=== PATIENT | male | born 1960 | race Caucasian/White ===

== ENCOUNTER 2017-01-03 01:47 | Inpatient (IN) | payer OTHER ==
[2017-01-03] VITALS (17 sets, daily range): BP systolic 105–157; BP diastolic 63–99; PULSE 66–92; RESP 16–22; TEMP 98.1–98.6; O2SAT 78–96
[~2017-01-03] VITALS: Ht 170.2 cm; Wt 63.1 kg
[~2017-01-03 01:47] MED LIST: Z.0.NO CURRENT MEDS
[2017-01-03] MEDS ORDERED: IOHEXOL 350 MG/ML 10 ML VIAL (for RAD DIAG) IVCONTRAST ONE (01:48)
[2017-01-03] MEDS ORDERED: SODIUM CHLORIDE 0.9% FLUSH 10 ML FLUSH IVF PRN (02:00)
[2017-01-03] MEDS ORDERED: RESP: ALBUTEROL 2.5 MG/IPRATROPIUM 0.5 MG NEB (SCH) INH ONE (02:00)
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
--- NOTE | 2017-01-03 03:20 | RADRPT ---
EXAM DATE/TIME: 01/03/2017 03:05 [facility] COMPARISON: No previous studies available for comparison. INDICATIONS : Shortness of breath MEDICAL HISTORY : None. SURGICAL HISTORY : None. ENCOUNTER: Initial ACUITY: 1 day PAIN SCORE: Non-responsive. LOCATION: Bilateral chest FINDINGS: The cardiac silhouette is enlarged in transverse diameter. There is patchy alveolar disease on the le ft compatible with edema or pneumonia. The right lung is free of acute parenchymal opacity. No pleura l effusions are identified. CONCLUSION: 1. Patchy alveolar left basilar disease characteristic of pneumonia. Rayshawn Belle MD on January 03, 2017 at 3:18 Board Certified Radiologist. This report was verified electronically.
[2017-01-03 03:36] LABS: ALKALINE PHOSPHATASE 69 U/L (45-117); CREATINE KINASE 356 U/L (39-308); TOTAL BILIRUBIN ADULT 0.6 MG/DL (0.2-1.0)
[2017-01-03 03:39] LABS: ALCOHOL 229 MG/DL (0-5); ALT (GPT) 26 U/L (12-78); ANION GAP 9 MEQ/L (5-15); AST (GOT) 36 U/L (15-37); BLOOD UREA NITROGEN 11 MG/DL (7-18); CHLORIDE 106 MEQ/L (98-107); GLOMERULAR FILTRATION RATE 69 ML/MIN (>89); MAGNESIUM 2.1 MG/DL (1.5-2.5); POTASSIUM 3.4 MEQ/L (3.5-5.1); SODIUM (NA) 138 MEQ/L (136-145)
[2017-01-03] MEDS ORDERED: cefTRIAXone INJ 2,000 MG in SODIUM CHLORIDE 0.9% INJ 100 ML IV ONE (03:45)
[2017-01-03] MEDS ORDERED: AZITHROMYCIN INJ 500 MG in SODIUM CHLOR 0.9% 250 ML INJ 250 ML IV ONE (03:45)
[2017-01-03 03:48] LABS: CKMB 1.7 NG/ML (0.5-3.6)
[2017-01-03 03:49] LABS: BASOPHIL % 0.3 % (0.0-2.0); EOSINOPHIL % 0.4 % (0.0-4.0); HEMATOCRIT 44.4 % (39.0-51.0); HEMO FLAGS DIFF FINAL; LYMPH % 10.9 % (9.0-44.0); MEAN CELL VOLUME 103.4 FL (80.0-100.0); MEAN CORPUSCULAR HEMOGLOBIN 35.3 PG (27.0-34.0); MEAN CORPUSCULAR HGB CONC 34.2 % (32.0-36.0); MONO % 9.8 % (0.0-8.0); NEUT % 78.6 % (16.0-70.0); PLATELET COUNT 234 TH/MM3 (150-450); RED BLOOD COUNT 4.29 MIL/MM3 (4.50-5.90); RED CELL DISTRIBUTION WIDTH 13.3 % (11.6-17.2); WHITE BLOOD COUNT 8.9 TH/MM3 (4.0-11.0)
[2017-01-03] MEDS ORDERED: RESP: ALBUTEROL 2.5 MG/IPRATROPIUM 0.5 MG NEB (SCH) NEB ONE ×2 (04:00→05:15)
[2017-01-03 04:40] LABS: BLOOD GAS BASE EXCESS -2.7 mmol/L (-2-2); BLOOD GAS CARBOXYHEMOGLOBIN 8.6 % (0-4); BLOOD GAS HCO3 23 mmol/L (22-26); BLOOD GAS METHEMOGLOBIN 0.8 % (0-2); BLOOD GAS O2 HGB SATURATION 71 % (90-100); BLOOD GAS OXYGEN CONTENT 14.9 Vol % (12.0-20.0); BLOOD GAS PCO2 53 mmHg (38-42); BLOOD GAS PO2 47 mmHG (61-120); TEMP CORR TO 98.6
[2017-01-03 04:41] LABS: CRITICAL VALUE YES; DRAW SITE RT RADIAL; FIO2 21 %; NUMBER OF ARTERIAL PUNCTURES 1; OXYGEN DEVICE N; STAT YES; ULNAR PULSE PRESENT
--- NOTE | 2017-01-03 05:42 | RADRPT ---
EXAM DATE/TIME: 01/03/2017 05:24 [facility] COMPARISON: No previous studies available for comparison. INDICATIONS : Shortness of breath. Elevated d-dimer. IV CONTRAST: 70 cc Omnipaque 350 (iohexol) IV RADIATION DOSE: 23.15 CTDIvol (mGy) MEDICAL HISTORY : None SURGICAL HISTORY : Clavicle surgery. ENCOUNTER: Initial ACUITY: 1 day PAIN SCALE: 0/10 LOCATION: chest TECHNIQUE: Volumetric scanning of the chest was performed using a pulmonary embolism protocol MIP images were re constructed. Using automated exposure control and adjustment of the mA and/or kV according to patien t size, radiation dose was kept as low as reasonably achievable to obtain optimal diagnostic quality images. DICOM format image data is available electronically for review and comparison. Follow-up recommendations for detected pulmonary nodules are based at a minimum on nodule size and pa tient risk factors according to Fleischner Society Guidelines. FINDINGS: Examination of the pulmonary vasculature demonstrates good filling of the main, lobar and segmental b ranches. There are no filling defects to suggest pulmonary embolism. Multiplanar reconstructions are also unremarkable. Examination of the mediastinum demonstrates no abnormally enlarged lymph nodes by CT criteria. No axi llary or hilar abnormalities are identified. Coronary artery calcifications are present. The visualiz ed upper abdomen demonstrates no abnormality. There is bibasilar edema versus pneumonia. No pleural e ffusions are identified. CONCLUSION: 1. No evidence of pulmonary embolism. 2. Bibasilar edema versus pneumonia Rayshawn Belle MD on January 03, 2017 at 5:38 Board Certified Radiologist. This report was verified electronically.
[2017-01-03] MEDS ORDERED: ONDANSETRON HCL 4 MG/2 ML VIAL IV PUSH ONE (06:00)
[2017-01-03 06:04] LABS: BLOOD GAS BASE EXCESS -3.8 mmol/L (-2-2); BLOOD GAS HCO3 23 mmol/L (22-26); BLOOD GAS METHEMOGLOBIN 0.8 % (0-2); BLOOD GAS O2 HGB SATURATION 86 % (90-100); BLOOD GAS OXYGEN CONTENT 17.4 Vol % (12.0-20.0); BLOOD GAS PCO2 55 mmHg (38-42); BLOOD GAS PO2 78 mmHG (61-120); BLOOD GAS TOTAL HGB 14.3 G/DL (12.0-16.0); TEMP CORR TO 98.6
[2017-01-03 06:05] LABS: CRITICAL VALUE YES; DRAW SITE RT RADIAL; LITER FLOW 5 L/M; NUMBER OF ARTERIAL PUNCTURES 2; OXYGEN DEVICE NASAL CANNULA; STAT YES; ULNAR PULSE PRESENT
[2017-01-03] MEDS ORDERED: SODIUM CHLOR 0.9% 1000 ML INJ 1,000 ML IV SCH (08:01)
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
[2017-01-03] MEDS ORDERED: SODIUM CHLORIDE 0.9% FLUSH 10 ML FLUSH IV FLUSH PRN (08:15)
[2017-01-03] MEDS ORDERED: MISCELLANEOUS NURSING INFORMATION XX SCH (08:15)
[2017-01-03] MEDS ORDERED: FLUMAZENIL 0.5 MG/5 ML VIAL IV PUSH PRN (08:15)
[2017-01-03] MEDS ORDERED: LORazepam 1 MG TAB PO PRN (08:15)
[2017-01-03] MEDS ORDERED: LORazepam 2 MG TAB PO PRN (08:15)
[2017-01-03] MEDS ORDERED: RESP: ALBUTEROL 2.5 MG/IPRATROPIUM 0.5 MG NEB (PRN) INH (08:15)
[2017-01-03] MEDS ORDERED: LORazepam 2 MG/ML VIAL IV PUSH PRN ×4 (08:15)
[2017-01-03] MEDS ORDERED: CHLORHEXIDINE GLUCONATE 2 % 1 PACK (2 CLOTHS) TOP PRN (08:15)
[2017-01-03] MEDS ORDERED: SODIUM CHLOR 0.9% 1000 ML INJ 1,000 ML IV ONE (08:45)
[2017-01-03] MEDS: SODIUM CHLORIDE 0.9% FLUSH 10 ML FLUSH IV FLUSH SCH ×2 (09:54→21:58)
[2017-01-03] MEDS: methylPREDNISolone SOD SUCC 125 MG/2 ML VIAL IV PUSH SCH ×2 (09:55→21:57)
[2017-01-03] MEDS: ENOXAPARIN SODIUM 40 MG/0.4 ML SYRINGE SQ SCH (09:55)
[2017-01-03] MEDS: FAMOTIDINE 20 MG TAB PO SCH ×2 (09:55→21:57)
[2017-01-03] MEDS: RESP: ALBUTEROL 2.5 MG/IPRATROPIUM 0.5 MG NEB (SCH) NEB ×3 (10:00→22:00)
[2017-01-03] MEDS: CEFEPIME INJ 2,000 MG in SODIUM CHLORIDE 0.9% INJ 100 ML IV SCH ×2 (10:28→21:58)
[2017-01-03] MEDS: MULTIVITAMIN INJ 10 ML, THIAMINE INJ 100 MG, FOLIC ACID INJ 1 MG in SODIUM CHLORID 0.9%... IV SCH (10:29)
[2017-01-03] MEDS: ACETAMINOPHEN/HYDROcodone 325 MG/5 MG TAB PO PRN (18:42)
[2017-01-03] MEDS: CHLORHEXIDINE 0.12% (ORAL KIT) 15 ML CUP MT SCH (20:00)
--- NOTE | 2017-01-03 21:40 | EKG ---
Date Performed: 01/03/2017 Time Performed: 03:40:47 PTAGE: 56 years EKG: Sinus rhythm ANTEROSEPTAL MYOCARDIAL INFARCTION ABNORMAL ECG NO PREVIOUS TRACING DOCTOR: Federico Langston Interpretating Date/Time 01/03/2017 21:38:14
[2017-01-04] MEDS ORDERED: CHLORHEXIDINE GLUCONATE 2 % 1 PACK (2 CLOTHS) TOP SCH (04:00)
[2017-01-04 04:04] VITALS: BP 136/86; PULSE 64; RESP 18; TEMP 98; O2SAT 93
[2017-01-04] MEDS: RESP: ALBUTEROL 2.5 MG/IPRATROPIUM 0.5 MG NEB (SCH) NEB ×2 (04:57→16:00)
[2017-01-04] MEDS: ACETAMINOPHEN/HYDROcodone 325 MG/5 MG TAB PO PRN ×3 (05:06→13:19)
[2017-01-04] MEDS ORDERED: AZITHROMYCIN INJ 500 MG in SODIUM CHLOR 0.9% 250 ML INJ 250 ML IV SCH (06:00)
--- NOTE | 2017-01-04 06:28 | RADRPT ---
EXAM DATE/TIME: 01/04/2017 06:24 [facility] COMPARISON: CHEST SINGLE AP, January 03, 2017, 3:05. INDICATIONS : Respiratory failure. MEDICAL HISTORY : None. SURGICAL HISTORY : None. ENCOUNTER: Subsequent ACUITY: 2 days PAIN SCORE: Non-responsive. LOCATION: Bilateral chest FINDINGS: A single view of the chest demonstrates minimal bibasilar densities. Heart normal in size. The cardi omediastinal contours are unremarkable. Osseous structures are intact. CONCLUSION: 1. Minimal bibasilar densities likely atelectasis. Pradeep Javier MD on January 04, 2017 at 6:26 Board Certified Radiologist. This report was verified electronically.
[2017-01-04 08:00] VITALS: BP 136/86; PULSE 66; RESP 20; TEMP 97.9; O2SAT 95
[2017-01-04] MEDS: CHLORHEXIDINE 0.12% (ORAL KIT) 15 ML CUP MT SCH (08:00)
[2017-01-04] MEDS: SODIUM CHLORIDE 0.9% FLUSH 10 ML FLUSH IV FLUSH SCH (08:38)
[2017-01-04] MEDS: CEFEPIME INJ 2,000 MG in SODIUM CHLORIDE 0.9% INJ 100 ML IV SCH (08:46)
[2017-01-04] MEDS: ENOXAPARIN SODIUM 40 MG/0.4 ML SYRINGE SQ SCH (08:47)
[2017-01-04] MEDS: FAMOTIDINE 20 MG TAB PO SCH (08:47)
[2017-01-04] MEDS: methylPREDNISolone SOD SUCC 125 MG/2 ML VIAL IV PUSH SCH (08:47)
[2017-01-04] MEDS: MULTIVITAMIN INJ 10 ML, THIAMINE INJ 100 MG, FOLIC ACID INJ 1 MG in SODIUM CHLORID 0.9%... IV SCH (09:16)
[2017-01-04 09:49] LABS: AUTOMATED NEUTROPHIL # 18.2 TH/MM3 (1.8-7.7); BASOPHIL # 0.1 TH/MM3 (0-0.2); BASOPHIL % 0.3 % (0.0-2.0); HEMATOCRIT 40.6 % (39.0-51.0); HEMO FLAGS DIFF FINAL; LYMPH % 3.4 % (9.0-44.0); LYMPHOCYTE # 0.7 TH/MM3 (1.0-4.8); MEAN CELL VOLUME 102.2 FL (80.0-100.0); MEAN CORPUSCULAR HEMOGLOBIN 35.5 PG (27.0-34.0); MEAN CORPUSCULAR HGB CONC 34.7 % (32.0-36.0); MONO % 7.2 % (0.0-8.0); NEUT % 89.1 % (16.0-70.0); PLATELET COUNT 225 TH/MM3 (150-450); RED BLOOD COUNT 3.97 MIL/MM3 (4.50-5.90); RED CELL DISTRIBUTION WIDTH 13.1 % (11.6-17.2); WHITE BLOOD COUNT 20.4 TH/MM3 (4.0-11.0)
[2017-01-04 10:24] LABS: ALKALINE PHOSPHATASE 60 U/L (45-117); ALT (GPT) 19 U/L (12-78); ANION GAP 8 MEQ/L (5-15); AST (GOT) 17 U/L (15-37); BICARBONATE 24.6 MEQ/L (21.0-32.0); BLOOD UREA NITROGEN 10 MG/DL (7-18); CHLORIDE 103 MEQ/L (98-107); GLOMERULAR FILTRATION RATE 117 ML/MIN (>89); POTASSIUM 3.9 MEQ/L (3.5-5.1); SODIUM (NA) 136 MEQ/L (136-145); TOTAL BILIRUBIN ADULT 0.7 MG/DL (0.2-1.0)
[2017-01-04 12:00] VITALS: BP 141/82; PULSE 62; RESP 20; TEMP 98.1; O2SAT 94
[2017-01-04] MEDS ORDERED: AZIT500T2 PO (15:56)
[2017-01-04] MEDS ORDERED: CEFU1TAB20 PO (16:00)
--- NOTE | 2017-01-04 16:29 | HHI.PR ---
Subjective Remarks Patient reports is feeling great. He requested to be discharged home. He denies shortness of breath. He is on room air. Appears comfortable. He has no plan to stop drinking or stop using tobacco. Objective Vitals Vital Signs Date Time Temp Pulse Resp B/P (MAP) Pulse Ox O2 Delivery O2 Flow Rate FiO2 01/04/17 12:00 98.1 62 20 141/82 (101) 94 01/04/17 10:26 Room Air 21 01/04/17 08:00 97.9 66 20 136/86 (103) 95 01/04/17 04:04 98.0 64 18 136/86 (103) 93 01/04/17 04:00 Room Air 01/04/17 00:00 Room Air 01/03/17 23:42 98.1 77 18 131/83 (99) 92 01/03/17 22:17 95 21 01/03/17 22:00 Room Air 01/03/17 20:37 98.1 76 18 140/85 (103) 95 01/03/17 18:02 98.3 76 20 157/95 (115) 96 01/03/17 18:00 96 Room Air I/O 01/03/17 01/03/17 01/03/17 01/04/17 01/04/17 01/04/17 07:00 15:00 23:00 07:00 15:00 23:00 Intake Total 100 ml 100 ml 970 ml Balance 100 ml 100 ml 970 ml Intake Oral 720 ml IV Total 100 ml 100 ml 250 ml # Voids 4 # Bowel Movements 0 Result Diagram: 01/04/17 0826 01/04/17 0826 Imaging Last Impressions Chest X-Ray 01/04/17 0600 Signed Impressions: Service Date/Time: Wednesday, January 04, 2017 06:24 - CONCLUSION: 1. Minimal bibasilar densities likely atelectasis. Pradeep Javier MD CT Angiography 01/03/17 0000 Signed Impressions: Service Date/Time: December 05:24 - CONCLUSION: 1. No evidence of pulmonary embolism. 2. Bibasilar edema versus pneumonia Rayshawn Belle MD Objective Remarks GENERAL: This is a well-nourished, well-developed patient, in no apparent distress. CARDIOVASCULAR: Normal rate and regular rhythm without murmurs, gallops, or rubs. RESPIRATORY: Air movement is fair. Diminished breath sounds bilaterally. No wheezing or rhonchi. GASTROINTESTINAL: Abdomen soft, non-tender, non-distended. Normal active bowel sounds MUSCULOSKELETAL: Extremities without cyanosis, or edema. NEURO: Alert & Oriented x4 to person, place, time, situation. Moves all ext x4 PSYCH: Appropriate mood and affect. A/P Problem List: (1) Acute on chronic respiratory failure with hypoxemia ICD Code: J96.21 - Acute and chronic respiratory failure with hypoxia Status: Acute (2) COPD with acute exacerbation ICD Code: J44.1 - Chronic obstructive pulmonary disease with (acute) exacerbation (3) LLL pneumonia ICD Code: J18.1 - Lobar pneumonia, unspecified organism (4) Lactic acidosis ICD Code: E87.2 - Acidosis (5) Sepsis ICD Code: A41.9 - Sepsis, unspecified organism (6) Alcohol intoxication ICD Code: F10.929 - Alcohol use, unspecified with intoxication, unspecified (7) Alcohol dependence ICD Code: F10.20 - Alcohol dependence, uncomplicated Assessment and Plan 56-year-old male alcoholic found slumped over by EMS. Patient admits that he has been drinking too much alcohol. He arrived in respiratory distress. He was found to have pneumonia. The patient quickly improved and weaned down to room air. He requested to go home. He has no plan to stop drinking alcohol. He is an every day smoker with no plans to stop. He was extensively counseled on the detrimental effect of alcohol and tobacco on his health. He is medically stable to be discharged home on oral antibiotics to complete the course of treatment for pneumonia. Patient counseled extensively on the need to take better care of himself. Problem Qualifiers (1) LLL pneumonia: Qualified Codes: J18.1 - Lobar pneumonia, unspecified organism (2) Sepsis: Qualified Codes: A41.9 - Sepsis, unspecified organism (3) Alcohol dependence: Qualified Codes: F10.29 - Alcohol dependence with unspecified alcohol-induced disorder Selene Schaffer MD Jan 04, 2017 16:29
== END 2017-01-04 16:27 | disposition home or self-care (01) | DRG 871 ==
LOC: NEPC 01:47 → NEDA 06:00 → HIMN 06:55 → N04B 17:48
PROVIDERS: ADMIT Internal Medicine; ATTEND Internal Medicine
PROC: 5A09357 Assistance with Respiratory Ventilation, Less than 24 Consecutive Hours, Continuous Positive Airway Pressure (ICD-10-PCS; principal; 2017-01-03)
DX: A41.9 Sepsis, unspecified organism (principal); J96.21 Acute and chronic respiratory failure with hypoxia; J18.9 Pneumonia, unspecified organism; J44.1 Chronic obstructive pulmonary disease with (acute) exacerbation; J44.0 Chronic obstructive pulmonary disease with (acute) lower respiratory infection; E87.2 Acidosis; F17.210 Nicotine dependence, cigarettes, uncomplicated; F10.229 Alcohol dependence with intoxication, unspecified; Y90.7 Blood alcohol level of 200-239 mg/100 ml
CPT/HCPCS: 36600; 71010; 71275; 80053; 80307; 82550; 82552; 82805; 83605; 83735; 83880; 84484; 85025; 85379; 87040; 87641; 93005; 94640; 94664; 96365; J0456; J0692; J0696; J1650; J2405; J2930; J3411; J7030; J7040; J7050; Q9967

== ENCOUNTER 2017-08-12 17:39 | Inpatient (IN) | payer OTHER ==
[~2017-08-12] VITALS: Ht 167.6 cm; Wt 63.7 kg
[~2017-08-12 17:39] MED LIST changes: +AMLO5 PO; +AZIT500T2 PO; +CEFU1TAB20 PO; +LISI10TA3 PO; +OXYC1TAB63 PO; +TRAM50TA PO; +WALKER WHEELS/F1 MIS
[2017-08-12 17:43] VITALS: BP 136/72; PULSE 94; RESP 16; TEMP 98.4; O2SAT 99
[2017-08-12] MEDS ORDERED: LIDOCAINE HCL 1% 50 ML VIAL INFIL ONE (18:00)
[2017-08-12] MEDS ORDERED: ACETAMINOPHEN/HYDROcodone 325 MG/5 MG TAB PO ONE (18:00)
[2017-08-12 18:03] VITALS: BP 152/86; PULSE 93; RESP 18; O2SAT 96
[2017-08-12] MEDS ORDERED: LIDOCAINE HCL 1% PF 30 ML VIAL ONE ×2 (18:05→18:26)
[2017-08-12 18:26] LABS: AUTOMATED NEUTROPHIL # 8.5 TH/MM3 (1.8-7.7); BASOPHIL # 0.1 TH/MM3 (0-0.2); BASOPHIL % 0.6 % (0.0-2.0); EOSINOPHIL # 0.1 TH/MM3 (0-0.4); EOSINOPHIL % 0.5 % (0.0-4.0); HEMATOCRIT 40.6 % (39.0-51.0); HEMOGLOBIN 13.6 GM/DL (13.0-17.0); LYMPHOCYTE # 1.5 TH/MM3 (1.0-4.8); MEAN CELL VOLUME 104.3 FL (80.0-100.0); MEAN CORPUSCULAR HEMOGLOBIN 34.9 PG (27.0-34.0); MEAN CORPUSCULAR HGB CONC 33.4 % (32.0-36.0); MEAN PLATELET VOLUME 7.1 FL (7.0-11.0); MONO % 13.9 % (0.0-8.0); MONOCYTE # 1.6 TH/MM3 (0-0.9); PLATELET COUNT 158 TH/MM3 (150-450); RED BLOOD COUNT 3.89 MIL/MM3 (4.50-5.90); WHITE BLOOD COUNT 11.8 TH/MM3 (4.0-11.0)
[2017-08-12 18:36] LABS: PROTHROMBIN TIME - PATIENT 9.9 SEC (9.8-11.6)
[2017-08-12 18:47] LABS: ALBUMIN 3.4 GM/DL (3.4-5.0); AST (GOT) 35 U/L (15-37); BICARBONATE 24.4 MEQ/L (21.0-32.0); BLOOD UREA NITROGEN 11 MG/DL (7-18); CALCIUM 8.3 MG/DL (8.5-10.1); CHLORIDE 109 MEQ/L (98-107); CREATININE 0.55 MG/DL (0.60-1.30); GLOMERULAR FILTRATION RATE 154 ML/MIN (>89); GLUCOSE,RANDOM 119 MG/DL (74-106); SODIUM (NA) 143 MEQ/L (136-145)
[2017-08-12 18:48] LABS: ALT (GPT) 27 U/L (12-78)
[2017-08-12 18:50] LABS: ALKALINE PHOSPHATASE 74 U/L (45-117); TOTAL BILIRUBIN ADULT 0.8 MG/DL (0.2-1.0); TOTAL PROTEIN 7.3 GM/DL (6.4-8.2)
--- NOTE | 2017-08-12 18:58 | RADRPT ---
EXAM DATE: 08/12/2017 6:50 PM EDT AGE/SEX: 57 years / Male INDICATIONS: Right knee swelling; no known injury. CLINICAL DATA: This is the patient's initial encounter. Patient reports that signs and symptoms have been present for 2 days and indicates a pain score of 8/10. MEDICAL/SURGICAL HISTORY: None. None. COMPARISON: No prior [facility] exams available for comparison. FINDINGS: There is prepatellar soft tissue swelling with a locule of air presumably in the prepatellar bursa or subcutaneous tissues. No acute bony abnormalities. CONCLUSION: Prepatellar bursitis or cellulitis with several small locules of air present in the soft tissues ante rior to the upper patella. Electronically signed by: Dayne Currie MD 08/12/2017 6:56 PM EDT
[2017-08-12 18:59] VITALS: BP 121/79; PULSE 80; RESP 20; O2SAT 95
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
[2017-08-12 20:44] LABS: WBC, SYNOVIAL FLUID 5400 /MM3 (0-200)
[2017-08-12] MEDS ORDERED: POTASSIUM CHLORIDE 20 MEQ CONTROLLED RELEASE TAB PO ONE (20:45)
[2017-08-12] MEDS ORDERED: CLINDAMYCIN 900 MG/NS PREMIX 50 ML IV ONE (21:15)
[2017-08-12] MEDS ORDERED: ACETAMINOPHEN 325 MG TAB PO PRN (21:15)
[2017-08-12] MEDS ORDERED: SENNOSIDES 8.6 MG TAB PO PRN (21:15)
[2017-08-12] MEDS ORDERED: NALOXONE HCL 0.4 MG/ML AMP IV PUSH PRN (21:15)
[2017-08-12] MEDS ORDERED: BISACODYL 10 MG SUPP RECTAL PRN (21:15)
[2017-08-12] MEDS ORDERED: ceFAZolin 2 GM PREMIX 50 ML IV ONE (21:15)
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
[2017-08-12] MEDS ORDERED: KETOROLAC TROMETHAMINE 30 MG/ML (IVP) VIAL IV PUSH ONE (21:45)
[2017-08-12] MEDS: ceFAZolin 2 GM PREMIX 50 ML IV SCH (21:59)
[2017-08-12] MEDS ORDERED: HYDROmorphone HCL PF 2 MG/ML VIAL IV PUSH ONE (22:15)
[2017-08-12 23:07] VITALS: BP 161/98; PULSE 80; RESP 17; O2SAT 95
[2017-08-13 04:18] VITALS: BP 168/90; PULSE 72; RESP 17; TEMP 98.5; O2SAT 93
[2017-08-13] MEDS: oxyCODONE/ACETAMINOPHEN 7.5 MG/325 MG TAB PO PRN ×3 (05:15→17:36)
[2017-08-13 06:12] LABS: AUTOMATED NEUTROPHIL # 7.7 TH/MM3 (1.8-7.7); BASOPHIL # 0.1 TH/MM3 (0-0.2); BASOPHIL % 0.6 % (0.0-2.0); EOSINOPHIL # 0.1 TH/MM3 (0-0.4); EOSINOPHIL % 0.8 % (0.0-4.0); HEMATOCRIT 45.3 % (39.0-51.0); HEMOGLOBIN 15.2 GM/DL (13.0-17.0); LYMPH % 10.9 % (9.0-44.0); LYMPHOCYTE # 1.1 TH/MM3 (1.0-4.8); MEAN CELL VOLUME 103.9 FL (80.0-100.0); MEAN CORPUSCULAR HEMOGLOBIN 34.8 PG (27.0-34.0); MEAN CORPUSCULAR HGB CONC 33.5 % (32.0-36.0); MEAN PLATELET VOLUME 8.2 FL (7.0-11.0); MONO % 14.3 % (0.0-8.0); MONOCYTE # 1.5 TH/MM3 (0-0.9); NEUT % 73.4 % (16.0-70.0); PLATELET COUNT 157 TH/MM3 (150-450); RED BLOOD COUNT 4.36 MIL/MM3 (4.50-5.90); WHITE BLOOD COUNT 10.5 TH/MM3 (4.0-11.0)
[2017-08-13] MEDS: ceFAZolin 2 GM PREMIX 50 ML IV SCH (06:23)
[2017-08-13 07:14] LABS: BICARBONATE 30.9 MEQ/L (21.0-32.0); CALCIUM 8.7 MG/DL (8.5-10.1); CREATININE 0.71 MG/DL (0.60-1.30)
[2017-08-13 07:34] VITALS: BP 177/96; PULSE 67; RESP 20; TEMP 98; O2SAT 95
[2017-08-13] MEDS: SODIUM CHLORIDE 0.9% FLUSH 10 ML FLUSH IV FLUSH SCH ×2 (08:31→21:00)
[2017-08-13] MEDS: HYDROmorphone HCL PF 2 MG/ML VIAL IV PUSH PRN (08:31)
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
[2017-08-13] MEDS ORDERED: Vancomycin Consult Pharmacy 1 EA OTHER SCH (10:30)
[2017-08-13 11:15] VITALS: BP 160/99; PULSE 74; RESP 20; TEMP 98.2; O2SAT 96
[2017-08-13] MEDS: VANCOMYCIN INJ 1,250 MG in SODIUM CHLOR 0.9% 250 ML INJ 250 ML IV SCH (14:17)
[2017-08-13 15:21] VITALS: BP 166/101; PULSE 91; RESP 20; TEMP 98.1; O2SAT 96
[2017-08-13 20:56] VITALS: BP 175/93; PULSE 70; RESP 16; TEMP 98.1; O2SAT 97
[2017-08-14] VITALS (7 sets, daily range): BP systolic 104–167; BP diastolic 64–97; PULSE 61–97; RESP 16–18; TEMP 97.4–98.9; O2SAT 94–98
[2017-08-14] MEDS ORDERED: POVIDONE IODINE 5% (ANTISEPSIS KIT) 4 APPLICATIONS EACH NARE PRN (02:15)
[2017-08-14] MEDS ORDERED: METOPROLOL TARTRATE 25 MG TAB PO PRN (02:15)
[2017-08-14] MEDS ORDERED: LACTATED RINGER'S 1000 ML IV PRN (02:15)
[2017-08-14] MEDS ORDERED: CHLORHEXIDINE GLUCONATE 2 % 1 PACK (2 CLOTHS) TOPICAL PRN (02:15)
[2017-08-14] MEDS ORDERED: SODIUM CHLORID 0.9% 500 ML IV PRN (02:15)
[2017-08-14] MEDS: VANCOMYCIN INJ 1,250 MG in SODIUM CHLOR 0.9% 250 ML INJ 250 ML IV SCH (03:32)
[2017-08-14] MEDS ORDERED: GENTAMICIN SULFATE 80 MG/2 ML VIAL ONE (05:39)
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
[2017-08-14 07:05] LABS: AUTOMATED NEUTROPHIL # 6.8 TH/MM3 (1.8-7.7); BASOPHIL % 0.2 % (0.0-2.0); EOSINOPHIL # 0.1 TH/MM3 (0-0.4); EOSINOPHIL % 0.7 % (0.0-4.0); HEMATOCRIT 40.8 % (39.0-51.0); HEMOGLOBIN 13.9 GM/DL (13.0-17.0); LYMPH % 9.2 % (9.0-44.0); LYMPHOCYTE # 0.8 TH/MM3 (1.0-4.8); MEAN CELL VOLUME 102.7 FL (80.0-100.0); MEAN PLATELET VOLUME 8.3 FL (7.0-11.0); MONO % 14.4 % (0.0-8.0); MONOCYTE # 1.3 TH/MM3 (0-0.9); NEUT % 75.5 % (16.0-70.0); PLATELET COUNT 144 TH/MM3 (150-450); RED BLOOD COUNT 3.97 MIL/MM3 (4.50-5.90); RED CELL DISTRIBUTION WIDTH 13.4 % (11.6-17.2); WHITE BLOOD COUNT 9.1 TH/MM3 (4.0-11.0)
--- NOTE | 2017-08-14 07:14 | PD.OP ---
cc: Nasima Soto MD Operative Report Date of Surgery: August 14, 2017 Preoperative Diagnosis: Right septic knee with cellulitis/bursitis Postoperative Diagnosis: Right knee cellulitis/bursitis Procedure: Irrigation and debridement right knee Anesthesia: General Surgeon: Nasima Soto Napper Tender(s): None Operation and Findings: EBL: 10 cc Complications: None Specimens: None Indications for procedure: patient is a 57-year-old gentleman who presented to the hospital with worsening right knee cellulitis and pain. Patient's knee was aspirated in the emergency department with positive cultures for staph aureus. At that time recommendation for surgical intervention in the form of irrigation and debridement of his right knee. Risks of surgery were discussed with the patient. Risks including but not limited to: Persistent infection, need for further surgery, early onset knee arthritis including pain and/or stiffness, and other unforeseen comp occasions were all discussed with the patient. At this time he has consented to the procedure. Description of procedure: Patient was brought back to the operating room and placed supine on operating room table with all bony prominences well-padded. General anesthesia then ensued. A tourniquet was placed on the patient's upper thigh and patient was prepped and draped in standard sterile fashion. A timeout was performed to identify the correct patient, side, site and procedure to be performed. Preoperative antibiotics were not given as the patient is on standing antibiotics and was not due for another dose. A anterior incision was made to the knee with sharp dissection through the skin and subcutaneous tissue. A small medial parapatellar arthrotomy was made into the knee joint itself. There was minimal if any synovial fluid expressed. There is no evidence of gross purulence deep. This was thoroughly irrigated with over 3 L of normal saline laden with gentamicin. At this time I then turned my attention to the sub-cutaneous tissue where there did seem to be some inflammation and possible fluctuance in the prepatellar bursa. Dissection was made through the subcutaneous tissue and into the prepatellar bursa. A small amount of straw-colored fluid was expressed although there is no gross purulence. There is no necrotic tissue. This bursa was thoroughly curetted to healthy bleeding tissue. This area was irrigated with over 3 L of normal saline as well. Cultures were not obtained as there is no significant fluid to culture. The parapatellar arthrotomy was closed with interrupted #1 PDS suture. The subcutaneous tissue was then closed with 3-0 PDS suture. A small Hermila was left in the bursal sac as this had a small amount of fluid. The skin was then closed with interrupted nylon sutures. Sterile dressings were then applied. Tourniquet was deflated and patient was awoke from general anesthesia without complication. Disposition: Patient can be weightbearing as tolerated range of motion as tolerated to the right knee. Patient may require long-term antibiotics given he does have cellulitis that appears to be worsening although no clear evidence of septic arthritis intraoperatively. Again, there was no fluid within the joint to sample. Nasima Soto MD August 14, 2017 07:14
[2017-08-14] MEDS ORDERED: SODIUM CHLORIDE 0.9% FLUSH 10 ML FLUSH IV FLUSH PRN (07:15)
[2017-08-14] MEDS ORDERED: Post-op Orders (for Pharmacy) XX ONE (07:15)
[2017-08-14] MEDS ORDERED: *morphine SULFATE 8 MG/ML PERIprocedure ONLY ONE ×3 (07:23→07:55)
[2017-08-14 07:29] LABS: BICARBONATE 25.7 MEQ/L (21.0-32.0); CALCIUM 8.6 MG/DL (8.5-10.1); CREATININE 0.52 MG/DL (0.60-1.30)
[2017-08-14] MEDS ORDERED: *MEPERIDINE 25 MG INJ VIAL PERIprocedural Use ONLY ONE (07:35)
[2017-08-14] MEDS ORDERED: DO NOT ADM ANY ANTICOAGULANT DRUGS PRN (07:45)
[2017-08-14] MEDS: SODIUM CHLORIDE 0.9% FLUSH 10 ML FLUSH IV FLUSH SCH ×2 (07:52→21:36)
[2017-08-14] MEDS ORDERED: *HYDROmorphone PF 0.5 MG/0.5 ML PERIprocedure ONLY ONE (08:05)
[2017-08-14] MEDS: amLODIPine BESYLATE 5 MG TAB PO SCH (08:51)
[2017-08-14] MEDS: LISINOPRIL 10 MG TAB PO SCH (08:52)
[2017-08-14] MEDS ORDERED: SODIUM CHLORIDE 0.9% FLUSH 10 ML FLUSH IV FLUSH SCH (09:00)
[2017-08-14] MEDS: oxyCODONE/ACETAMINOPHEN 7.5 MG/325 MG TAB PO PRN ×2 (09:38→15:51)
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
--- NOTE | 2017-08-14 11:09 | HHI.PR ---
Subjective Remarks Follow up right knee cellulitis. S/P surgery this morning. Patient states that his leg feels better today. No other complaints at this time. Objective Vitals Vital Signs Date Time Temp Pulse Resp B/P (MAP) Pulse Ox O2 Delivery O2 Flow Rate FiO2 08/14/17 08:15 68 16 136/87 (103) 94 Room Air 08/14/17 08:00 80 16 140/90 (107) 93 Room Air 08/14/17 07:45 72 16 144/89 (107) 94 Room Air 08/14/17 07:30 78 16 153/94 (113) 95 Room Air 08/14/17 07:21 97.6 76 16 146/98 (114) 98 08/14/17 05:57 98.7 81 16 171/114 (133) 94 08/14/17 05:57 81 08/14/17 04:13 98.7 73 16 147/97 (114) 96 08/14/17 00:23 98.9 80 16 167/94 (118) 97 08/13/17 20:56 98.1 70 16 175/93 (120) 97 08/13/17 15:21 98.1 91 20 166/101 (122) 96 08/13/17 11:15 98.2 74 20 160/99 (119) 96 I/O 08/13/17 08/13/17 08/13/17 08/14/17 08/14/17 08/14/17 07:00 15:00 23:00 07:00 15:00 23:00 Intake Total 500 ml Balance 500 ml Intake IV Total 500 ml Result Diagram: 08/14/17 0527 08/14/17 0527 Imaging Last Impressions Knee X-Ray 08/12/17 0000 Signed Impressions: CONCLUSION: Prepatellar bursitis or cellulitis with several small locules of air present in the soft tissues anterior to the upper patella. Objective Remarks General: No acute distress. Heart: Regular rate and rhythm. No murmur. Lungs: Clear to auscultation bilaterally. No wheezes, rales, or rhonchi. Breathing is nonlabored. Abdomen: Soft, nontender, nondistended. Extremities: No lower extremity edema. Right knee bandaged. Erythema decreased compared to prior markings. Psych: Alert and oriented. Neuro: Normal speech. No focal deficits noted. Procedures 08/12/17 right knee joint aspiration performed in the ER 08/14/17 irrigation and debridement, right knee Urinary Catheter: No Vascular Central Line Catheter: No A/P Problem List: (1) Bursitis of right knee ICD Code: M70.51 - Other bursitis of knee, right knee (2) Hypokalemia ICD Code: E87.6 - Hypokalemia Assessment and Plan 1. Right knee cellulitis: Improving. Appreciate orthopedic surgery recommendations. Status post irrigation and debridement. Continue IV vancomycin. Appreciate infectious disease recommendations. 2. Hypokalemia: Improved. 3. Elevated blood pressure: No known history of hypertension. Possibly secondary to pain. Continue pain control. 4. Tobacco abuse: Patient has been counseled. He was offered a nicotine patch , but has declined. 5. DVT prophylaxis: SCD, JEANA hose to the left leg. Avoid chemical prophylaxis secondary to surgery. Discharge Planning Pending further clinical improvement and clearance from orthopedic surgery, infectious disease. Jose Eduardo Marina MD August 14, 2017 11:09
[2017-08-14] MEDS: HYDROmorphone HCL PF 2 MG/ML VIAL IV PUSH PRN ×2 (11:21→21:37)
[2017-08-14] MEDS ORDERED: PHENYLEPH/NS 1000 MCG/10 ML SYR IV ONE (12:00)
[2017-08-14] MEDS ORDERED: LIDOCAINE HCL 1% PF 5 ML SYRINGE OTHER ONE (12:00)
[2017-08-14] MEDS ORDERED: POTASSIUM CHLORIDE 10 MEQ CAP PO ONE (12:00)
[2017-08-14] MEDS ORDERED: ONDANSETRON HCL 4 MG/2 ML VIAL IV PUSH ONE (12:00)
[2017-08-14] MEDS ORDERED: PROPOFOL 200 MG/20 ML AMP IV ONE (12:00)
[2017-08-14] MEDS ORDERED: DEXAMETHASONE SOD PHOS 4 MG/ML VIAL IV ONE (12:00)
[2017-08-14] MEDS: ceFAZolin 2 GM/DEX PREMIX 50 ML IV SCH ×2 (14:00→21:36)
--- NOTE | 2017-08-14 14:03 | EKG ---
Date Performed: 08/14/2017 Time Performed: 04:21:15 PTAGE: 57 years EKG: Sinus rhythm POSSIBLE LEFT ATRIAL ENLARGEMENT POSSIBLE RIGHT VENTRICULAR CONDUCTION DELAY SEPTAL MYOCARDIAL INFAR CTION ABNORMAL ECG NO PREVIOUS TRACING DOCTOR: Deniz Amaral Interpretating Date/Time 08/14/2017 14:02:06
[2017-08-15] VITALS (7 sets, daily range): BP systolic 104–152; BP diastolic 67–86; PULSE 65–75; RESP 16–20; TEMP 97.5–98.9; O2SAT 90–98
[2017-08-15] MEDS ORDERED: PHARMACY ORDERED LAB ONE (01:45)
[2017-08-15 05:13] LABS: AUTOMATED NEUTROPHIL # 7.5 TH/MM3 (1.8-7.7); BASOPHIL % 0.5 % (0.0-2.0); EOSINOPHIL % 0.4 % (0.0-4.0); HEMATOCRIT 37.6 % (39.0-51.0); HEMOGLOBIN 12.7 GM/DL (13.0-17.0); LYMPH % 10.7 % (9.0-44.0); LYMPHOCYTE # 1.1 TH/MM3 (1.0-4.8); MEAN CELL VOLUME 103.3 FL (80.0-100.0); MEAN CORPUSCULAR HEMOGLOBIN 34.8 PG (27.0-34.0); MEAN CORPUSCULAR HGB CONC 33.7 % (32.0-36.0); MEAN PLATELET VOLUME 7.9 FL (7.0-11.0); MONO % 13.2 % (0.0-8.0); MONOCYTE # 1.3 TH/MM3 (0-0.9); NEUT % 75.2 % (16.0-70.0); PLATELET COUNT 174 TH/MM3 (150-450); RED BLOOD COUNT 3.64 MIL/MM3 (4.50-5.90); RED CELL DISTRIBUTION WIDTH 13.4 % (11.6-17.2)
[2017-08-15] MEDS: ceFAZolin 2 GM/DEX PREMIX 50 ML IV SCH ×2 (05:38→15:31)
[2017-08-15] MEDS: oxyCODONE/ACETAMINOPHEN 7.5 MG/325 MG TAB PO PRN ×3 (05:42→23:11)
[2017-08-15 05:45] LABS: BICARBONATE 27.6 MEQ/L (21.0-32.0); CALCIUM 8.7 MG/DL (8.5-10.1); CREATININE 0.86 MG/DL (0.60-1.30)
[2017-08-15] MEDS: LISINOPRIL 10 MG TAB PO SCH (07:35)
[2017-08-15] MEDS: amLODIPine BESYLATE 5 MG TAB PO SCH (07:35)
--- NOTE | 2017-08-15 07:35 | PD.ORT.PN ---
Subjective Subjective Remarks Patient resting comfortable currently. He does still complain of some right knee pain. He comments that he feels his swelling and redness is at least stable if not slightly improved this morning. Objective Vitals Vital Signs Date Time Temp Pulse Resp B/P (MAP) Pulse Ox O2 Delivery O2 Flow Rate FiO2 08/15/17 03:39 96 08/15/17 03:24 98.5 75 16 104/67 (79) 90 08/14/17 23:45 97.9 61 16 105/64 (78) 08/14/17 22:18 18 08/14/17 20:36 98.2 68 16 107/71 (83) 98 08/14/17 16:00 97.4 75 18 133/81 (98) 96 08/14/17 11:48 98.7 97 18 104/75 (85) 94 08/14/17 08:15 68 16 136/87 (103) 94 Room Air 08/14/17 08:00 80 16 140/90 (107) 93 Room Air 08/14/17 07:45 72 16 144/89 (107) 94 Room Air I/O 08/14/17 08/14/17 08/14/17 08/15/17 08/15/17 08/15/17 07:00 15:00 23:00 07:00 15:00 23:00 Intake Total 500 ml Balance 500 ml Intake IV Total 500 ml Result Diagram: 08/15/17 0443 08/15/17 0443 Objective Remarks Awake, alert, no acute distress Right lower extremity: Dressing in place over knee. Erythema is still present proximally and distal to the knee although does not appear significantly changed from yesterday. Patient allows gentle passive range of motion of his knee with discomfort at flexion of approximately 90. Patient is neurovascularly intact distally. Negative Homans. Assessment & Plan Assessment and Plan 57-year-old gentleman with right knee cellulitis/bursitis with concern for septic arthritis, POD#1 s/p I&D R knee and prepatellar bursa 1. Weightbearing as tolerated and range of motion as tolerated to right knee. 2. Infectious disease has been consult. Reported knee arthrocentesis on presentation with +MSSA. However, intraoperatively, there was no appreciable joint fluid to sample. In addition, there was only a few cc of bursal fluid in the prepatellar bursa which appeared straw-colored and not purulent. I discussed with the patient my findings intraoperatively. Given his arthrocentesis was positive, I would recommend continued conservative treatment which would require at least a period of antibiotic treatment. I do not believe a secondary surgery would be of benefit for him. 3. Dressing to be changed tomorrow and Perry pulled. Nasima Soto MD August 15, 2017 07:35
[2017-08-15] MEDS: SODIUM CHLORIDE 0.9% FLUSH 10 ML FLUSH IV FLUSH SCH ×2 (07:36→20:16)
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
[2017-08-15] MEDS: HYDROmorphone HCL PF 2 MG/ML VIAL IV PUSH PRN ×3 (08:49→20:20)
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
--- NOTE | 2017-08-15 15:12 | HHI.PR ---
Subjective Remarks Follow-up right knee cellulitis. The patient states that the drain fell out. He feels that it is about the same today. Still painful. Redness has extended further up the leg, but the right leg is overall less erythematous. Objective Vitals Vital Signs Date Time Temp Pulse Resp B/P (MAP) Pulse Ox O2 Delivery O2 Flow Rate FiO2 08/15/17 12:29 97.9 73 18 116/72 (87) 94 08/15/17 09:19 18 08/15/17 08:19 98.9 67 20 123/83 (96) 96 08/15/17 03:39 96 08/15/17 03:24 98.5 75 16 104/67 (79) 90 08/14/17 23:45 97.9 61 16 105/64 (78) 08/14/17 20:36 98.2 68 16 107/71 (83) 98 08/14/17 16:00 97.4 75 18 133/81 (98) 96 I/O 08/14/17 08/14/17 08/14/17 08/15/17 08/15/17 08/15/17 07:00 15:00 23:00 07:00 15:00 23:00 Intake Total 500 ml Balance 500 ml Intake IV Total 500 ml Result Diagram: 08/15/17 0443 08/15/17 0443 Imaging Last Impressions Lower Extremity Ultrasound 08/15/17 0000 Signed Impressions: CONCLUSION: 1. No evidence of deep venous thrombosis. 2. Multiple left groin lymph nodes. Knee X-Ray 08/12/17 0000 Signed Impressions: CONCLUSION: Prepatellar bursitis or cellulitis with several small locules of air present in the soft tissues anterior to the upper patella. Objective Remarks General: No acute distress. Heart: Regular rate and rhythm. No murmur. Lungs: Clear to auscultation bilaterally. No wheezes, rales, or rhonchi. Breathing is nonlabored. Abdomen: Soft, nontender, nondistended. Extremities: No lower extremity edema. Right knee wound with sutures in place. Erythema now extends beyond prior markings on the upper and lower leg, but is not as dark and there is decreased warmth over this area. Psych: Alert and oriented. Neuro: Normal speech. No focal deficits noted. Procedures 5/28/18 right knee joint aspiration performed in the ER 08/14/17 irrigation and debridement, right knee Urinary Catheter: No Vascular Central Line Catheter: No A/P Problem List: (1) Bursitis of right knee ICD Code: M70.51 - Other bursitis of knee, right knee (2) Hypokalemia ICD Code: E87.6 - Hypokalemia Assessment and Plan 1. Right knee cellulitis: Appreciate orthopedic surgery and infectious disease recommendations. Status post irrigation and debridement. Continue IV antibiotics. Appreciate infectious disease recommendations. 2. Hypokalemia: Improved. 3. Elevated blood pressure: No known history of hypertension. Possibly secondary to pain. BP now well controlled. Continue pain control. 4. Tobacco abuse: Patient has been counseled. He was offered a nicotine patch , but has declined. 5. DVT prophylaxis: SCD, JEANA hose to the left leg. Discharge Planning Pending further clinical improvement and clearance from orthopedic surgery, infectious disease. Jose Eduardo Marina MD August 15, 2017 15:12
[2017-08-15] MEDS: cefTRIAXone INJ 2,000 MG in SODIUM CHLORIDE 0.9% INJ 100 ML IV SCH (17:09)
[2017-08-16] VITALS: BP 152/91; PULSE 66; RESP 20; TEMP 98.2; O2SAT 96
[2017-08-16] MEDS: HYDROmorphone HCL PF 2 MG/ML VIAL IV PUSH PRN ×4 (00:30→22:37)
[2017-08-16] MEDS: oxyCODONE/ACETAMINOPHEN 7.5 MG/325 MG TAB PO PRN ×3 (06:38→21:09)
[2017-08-16 08:00] VITALS: BP 137/72; PULSE 77; RESP 19; TEMP 97.9; O2SAT 95
[2017-08-16] MEDS: SODIUM CHLORIDE 0.9% FLUSH 10 ML FLUSH IV FLUSH SCH ×2 (08:54→21:13)
[2017-08-16] MEDS: amLODIPine BESYLATE 5 MG TAB PO SCH (08:55)
[2017-08-16] MEDS: LISINOPRIL 10 MG TAB PO SCH (08:55)
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
[2017-08-16 12:00] VITALS: BP 127/62; PULSE 75; RESP 18; TEMP 97.7; O2SAT 96
[2017-08-16] MEDS ORDERED: EPIN1INJ21 IV PUSH (13:03)
[2017-08-16] MEDS ORDERED: SOLU250I IV PUSH (13:03)
[2017-08-16] MEDS ORDERED: EPIN1INJ21 SQ (13:03)
[2017-08-16] MEDS ORDERED: CEFT2INJ IV (13:03)
--- NOTE | 2017-08-16 13:08 | HHI.FF ---
Infusion Therapy Location of Infusion Therapy: Home [facility] IV Infusion Order Patient Information Appointment Date: Aug 16, 2017 Patient Weight 65.9 kg Diagnosis: Diagnosis Staph Septic arthritis Coded Allergies: No Known Allergies (Verified Allergy, Unknown, 09/09/04) Administer Medication Ceftriaxone 2 grams IV q 24 hours Start Treatment: Aug 16, 2017 Stop Treatment: Sep 14, 2017 Additional Information Venous access: PICC Line, Other (PICC or Midline) Additional Instructions [x] Peripheral flush and dressing changes per protocol [x] Implanted port and central wrist liner: * Implanted port: 10 ml Normal Saline followed by 5 ml Heparin 100 units/ml Heparin flush after each use and monthly to maintain. [] May leave port accessed during therapy. [] May leave peripheral site accessed for duration of therapy. [x] If patient has SOB or respiratory distress, check oxygen saturation. If less than 90% or clinical signs of respiratory distress, administer oxygen at 2 L/min. via nasal cannula and notify physician. [x] Anaphylaxis/Reaction orders: * Stop infusion. * Keep IV line open with saline flush. * Notify physician. * Monitor vital signs every 15 minutes until symptoms resolve. * Check Oxygen saturation; Oxygen at 2 L/min. via nasal cannula if less than 90% or clinical signs of respiratory distress. * Administer diphenhydramine (Benadryl) 25 mg IV STAT, (unless patient has received as pre-med). May repeat once, if necessary. * Solu-Cortef 250 mg IVP over 30-60 seconds, use 100 mg vials for each dissolution. * Epinephrine (1mg/1 ml) 0.3 mg subcutaneously or IVP now with any signs of respiratory distress. * Check with physician for new additional pre-med orders if patient is re- challenged or re-treated. [x] May remove PICC line when treatment complete, after confirming with Physician. [x] If the patient is admitted to the hospital, the ED, or transferred via [facility] , complete transfer form including medication reconciliation order sheet. Laboratory Tests Weekly Labs: CBC w/diff, Creatinine, CRP, LFT's (Hepatic function test) Additional Information Please draw weekly labs, [facility] Call with abnormals, change in clinical condition or problems to: [place] physician ID clinic Dr.Muhammad Bert Mcgee fax:[phone] Follow up appt: Follow up with PCP Follow up with other MDs as planned. Counseling: Counseled about medication side effects Counseled about PICC line care and hand hygiene. Ana Paula Montes MD Aug 16, 2017 13:08
--- NOTE | 2017-08-16 15:19 | PD.PN.STU ---
Subjective Remarks Pt being evaluated for septic arthritis post arthrocentesis, Stephen He complains of pain and swelling in his right knee. It has not changed since I& D He denies fevers, chills, nausea, SOB, chest pain Objective Vitals Vital Signs Date Time Temp Pulse Resp B/P (MAP) Pulse Ox O2 Delivery O2 Flow Rate FiO2 08/16/17 12:00 97.7 75 18 127/62 (83) 96 08/16/17 08:00 97.9 77 19 137/72 (93) 95 08/16/17 00:00 98.2 66 20 152/91 (111) 96 08/15/17 20:00 97.9 68 20 135/72 (93) 98 08/15/17 17:49 97.5 65 18 152/86 (108) 97 08/15/17 16:56 18 08/15/17 16:41 98.4 72 18 134/83 (100) 96 08/15/17 16:32 18 I/O 08/15/17 08/15/17 08/15/17 08/16/17 08/16/17 08/16/17 07:00 15:00 23:00 07:00 15:00 23:00 Intake Total 100 ml Balance 100 ml Intake IV Total 100 ml # Voids 1 # Bowel Movements 1 Result Diagram: 08/15/1744208/15/17442 Other Results Vital Signs, 24 Hour Date Time Temp Pulse Resp B/P (MAP) Pulse Ox O2 Delivery O2 Flow Rate FiO2 08/16/17 12:00 97.7 75 18 127/62 (83) 96 08/16/17 08:00 97.9 77 19 137/72 (93) 95 08/16/17 00:00 98.2 66 20 152/91 (111) 96 08/15/17 20:00 97.9 68 20 135/72 (93) 98 08/15/17 17:49 97.5 65 18 152/86 (108) 97 08/15/17 16:56 18 08/15/17 16:41 98.4 72 18 134/83 (100) 96 08/15/17 16:32 18 Allergies Coded Allergies No Known Allergies (Verified Allergy, Unknown, 09/09/04) Active Scripts Active Cefuroxime (Cefuroxime Axetil) 500 Mg Tab 500 Mg PO BID 5 Days Azithromycin 500 Mg Tab 500 Mg PO DAILY Tramadol (Tramadol HCl) 50 Mg Tab 50 Mg PO Q8H PRN Oxycodone-Acetaminophen 5-325 mg Tab 1 Tab PO Q4H PRN Lisinopril 10 Mg Tab 10 Mg PO DAILY Norvasc (Amlodipine Besylate) 5 Mg Tab 5 Mg PO DAILY Walker with Front Wheels (Device) 1 Mis Mis 1 Ea .ROUTE DIRECTED Reported No Current Meds (Miscellaneous Medication) [facility] [place] Rem[place] PE limited due to recent bandage placement on right knee R knee appears more swollen pt able to wiggle toes and has preserved sensation on the right lower extremity Medications and IVs Current Medications Medications (Trade) Dose Ordered Sig/Enrique Route Start Time Stop Time Status Last Admin (NS Flush) 2 ml UNSCH PRN IV FLUSH 08/12/17 21:15 (NS Flush) 2 ml BID IV FLUSH 08/13/17 09:00 08/16/17 08:54 (Tylenol) 650 mg Q4H PRN PO 08/12/17 21:15 (Narcan Inj) 0.4 mg UNSCH PRN IV PUSH 08/12/17 21:15 (Milk Of Magnesia Liq) 30 ml Q12H PRN PO 08/12/17 21:15 (Senokot) 17.2 mg Q12H PRN PO 08/12/17 21:15 (Dulcolax Supp) 10 mg DAILY PRN RECTAL 08/12/17 21:15 (Lactulose Liq) 30 ml DAILY PRN PO 08/12/17 21:15 (Percocet 7.5-325 Mg) 1 tab Q6H PRN PO 08/12/17 22:15 08/16/17 13:59 (Dilaudid Pf Inj) 1 mg Q4H PRN IV PUSH 08/12/17 22:15 08/16/17 08:55 (Vasotec Inj) 1.25 mg Q6H PRN IV PUSH 08/13/17 10:30 Lactated Ringer's 1,000 ml @ 30 mls/hr Q24H PRN IV 08/14/17 02:15 08/17/17 02:14 08/14/17 06:14 Sodium Chloride 500 ml @ 30 mls/hr [id number] PRN IV 08/14/17 02:15 08/17/17 02:14 (Lopressor) 25 mg MICA LAYER PRN PO 08/14/17 02:15 08/17/17 02:14 (Betadine 5% Antisepsis Kit) 1 applic MICA LAYER PRN EACH NARE 08/14/17 02:15 08/17/17 02:14 (Chlorhexidine 2% Cloth) 3 pack MICA LAYER PRN TOPICAL 08/14/17 02:15 08/17/17 02:14 (Norvasc) 5 mg DAILY PO 08/14/17 09:00 08/16/17 08:55 (Prinivil) 10 mg DAILY PO 08/14/17 09:00 08/16/17 08:55 Ceftriaxone Sodium 2000 mg/ Sodium Chloride 100 ml @ 200 mls/hr Q24H IV 08/15/17 17:00 08/15/17 17:09 A/P Assessment and Plan Septic Arthritis, staph continue to treat with IV ceftriaxone evaluating whether pt can go home with PICC line [facility] pain control should be continued with 2 tabs of percocet for pain 5-10 q6, 1 tab for less than 5 q6 hrs. IV hydromorphone for breakthrough pain q4hr Tip Sorensen M3 Aug 16, 2017 15:19
[2017-08-16 16:00] VITALS: BP 144/103; PULSE 82; RESP 19; TEMP 97.8; O2SAT 93
--- NOTE | 2017-08-16 17:26 | HHI.PR ---
Subjective Remarks Complains of right knee pain. Denies fevers or chills. States his right leg is edematous. Objective Vitals Vital Signs Date Time Temp Pulse Resp B/P (MAP) Pulse Ox O2 Delivery O2 Flow Rate FiO2 08/16/17 16:00 97.8 82 19 144/103 (117) 93 08/16/17 12:00 97.7 75 18 127/62 (83) 96 08/16/17 08:00 97.9 77 19 137/72 (93) 95 08/16/17 00:00 98.2 66 20 152/91 (111) 96 08/15/17 20:00 97.9 68 20 135/72 (93) 98 08/15/17 17:49 97.5 65 18 152/86 (108) 97 I/O 08/15/17 08/15/17 08/15/17 08/16/17 08/16/17 08/16/17 06:59 14:59 22:59 06:59 14:59 22:59 Intake Total 100 ml Balance 100 ml Intake IV Total 100 ml # Voids 1 # Bowel Movements 1 Result Diagram: 08/15/17 0443 08/15/17 0443 Imaging Last Impressions Lower Extremity Ultrasound 08/15/17 0000 Signed Impressions: CONCLUSION: 1. No evidence of deep venous thrombosis. 2. Multiple left groin lymph nodes. Knee X-Ray 08/12/17 0000 Signed Impressions: CONCLUSION: Prepatellar bursitis or cellulitis with several small locules of air present in the soft tissues anterior to the upper patella. Objective Remarks General: No acute distress. Heart: Regular rate and rhythm. No murmur. Lungs: Clear to auscultation bilaterally. No wheezes, rales, or rhonchi. Breathing is nonlabored. Abdomen: Soft, nontender, nondistended. Extremities: There is edema of the right lower extremity. Right knee wound with sutures in place. Erythema seems to be improving but still present. Psych: Alert and oriented. Neuro: Normal speech. No focal deficits noted. Procedures 08/12/17 right knee joint aspiration performed in the ER 08/14/17 irrigation and debridement, right knee A/P Problem List: (1) Septic arthritis of knee, right ICD Code: M00.9 - Pyogenic arthritis, unspecified Plan: Orthopedic surgery consulted. ID consulted. The patient status post irrigation debridement. Continue IV Rocephin as per ID recommendations. The patient will need to go home on IV Rocephin. We will place the patient on ibuprofen 600 mg every 8 hours to help on swelling. Continue pain control with Delaplane and IV Dilaudid for breakthrough pain. (2) Hypokalemia ICD Code: E87.6 - Hypokalemia Status: Resolved Plan: That is post replacement. Continue to monitor BMP and replace as needed. (3) Cellulitis of right knee ICD Code: L03.115 - Cellulitis of right lower limb (4) HTN (hypertension) ICD Code: I10 - Essential (primary) hypertension Plan: Patient's blood pressure likely related to pain. Patient does not have history of hypertension. Blood pressure is much improved after improved pain control. Continue to monitor vital signs. (5) Tobacco abuse ICD Code: Z72.0 - Tobacco use Status: Chronic Plan: Nicotine patch offered, however patient refused. Assessment and Plan Continue SCDs and JEANA hose for DVT prophylaxis. Discharge Planning Continue to monitor and the medical floor. Ramon Paul MD Aug 16, 2017 17:26
[2017-08-16] MEDS: cefTRIAXone INJ 2,000 MG in SODIUM CHLORIDE 0.9% INJ 100 ML IV SCH (17:34)
[2017-08-16] MEDS: MAGNESIUM HYDROXIDE SUSP 30 ML CUP PO PRN (17:36)
[2017-08-16 20:00] VITALS: BP 162/88; PULSE 75; RESP 18; TEMP 97.8; O2SAT 97
[2017-08-16] MEDS: LACTULOSE SYRUP 20 GM/30 ML CUP PO PRN (21:11)
[2017-08-16] MEDS: SODIUM CHLORIDE 0.9% FLUSH 10 ML FLUSH IV FLUSH PRN (22:12)
[2017-08-17] MEDS: ENALAPRILAT 1.25 MG/ML VIAL IV PUSH PRN ×2 (00:27→21:15)
[2017-08-17 00:42] VITALS: BP 181/101; PULSE 69; RESP 18; TEMP 98; O2SAT 97
[2017-08-17 04:56] VITALS: BP 152/92; PULSE 84; RESP 18; TEMP 98.4; O2SAT 96
[2017-08-17] MEDS: oxyCODONE/ACETAMINOPHEN 7.5 MG/325 MG TAB PO PRN ×3 (06:42→20:11)
[2017-08-17 08:00] VITALS: BP 169/98; PULSE 79; RESP 18; TEMP 97.6; O2SAT 95
--- NOTE | 2017-08-17 08:18 | PD.ORT.PN ---
Subjective Subjective Remarks Sitting up in bed. States his knee hurts but 'seems better'. He still has some swelling but is able to bend it readily. Appetite is good. No complaint of CP, SOB, or abd pain. Objective Vitals Vital Signs Date Time Temp Pulse Resp B/P (MAP) Pulse Ox O2 Delivery O2 Flow Rate FiO2 08/17/17 04:56 98.4 84 18 152/92 (112) 96 08/17/17 00:42 98.0 69 18 181/101 (127) 97 08/16/17 23:07 18 08/16/17 22:09 18 08/16/17 20:00 97.8 75 18 162/88 (112) 97 08/16/17 16:00 97.8 82 19 144/103 (117) 93 08/16/17 12:00 97.7 75 18 127/62 (83) 96 I/O 08/16/17 08/16/17 08/16/17 08/17/17 08/17/17 08/17/17 07:00 15:00 23:00 07:00 15:00 23:00 Intake Total 1000 ml 760 ml Balance 1000 ml 760 ml Intake Oral 1000 ml 760 ml # Voids 1 4 4 # Bowel Movements 1 1 1 Result Diagram: 08/15/1744208/15/17442 Objective Remarks Sitting up in bed NAD VSS RLE Dressing in place over knee w MARIJA. No obvious drainage. Mild erythema but improve from previous marked perimeter +motor at distal, +sensation intact leg and foot, ROM to 95-100 flexion with AROM, +nvi, Negative Homans. Assessment & Plan Ortho Post Op Day #: 3 Problem List: Assessment and Plan 57-year-old gentleman with right knee cellulitis/bursitis with concern for septic arthritis, pod#3 s/p I&D R knee and prepatellar bursa Ortho stable. Erythema improving. Pain controlled WBAT RLE. ROM as tolerated right knee. Dressing changes as written. PO pain meds ID treating. Culture shows staph aureus. Medical care at this time. Dr. Soto to follow. Cyndie Landon Aug 17, 2017 08:18
[2017-08-17] MEDS: LISINOPRIL 10 MG TAB PO SCH (09:07)
[2017-08-17] MEDS: amLODIPine BESYLATE 5 MG TAB PO SCH (09:08)
[2017-08-17] MEDS: SODIUM CHLORIDE 0.9% FLUSH 10 ML FLUSH IV FLUSH SCH ×2 (09:09→20:13)
[2017-08-17] MEDS: HYDROmorphone HCL PF 2 MG/ML VIAL IV PUSH PRN ×3 (09:09→21:15)
[2017-08-17 12:00] VITALS: BP 144/85; PULSE 88; RESP 18; TEMP 97.8; O2SAT 95
[2017-08-17 16:00] VITALS: BP 152/97; PULSE 87; RESP 18; TEMP 98.1; O2SAT 95
[2017-08-17] MEDS: cefTRIAXone INJ 2,000 MG in SODIUM CHLORIDE 0.9% INJ 100 ML IV SCH (16:50)
--- NOTE | 2017-08-17 17:33 | HHI.PR ---
Subjective Remarks Deferred entry, the patient was seen earlier at 11 AM. Patient initially sleeping comfortably when I entered the room. Patient states that the knee hurts but seems better. Denies chest pain or shortness of breath, good appetite. Objective Vitals Vital Signs Date Time Temp Pulse Resp B/P (MAP) Pulse Ox O2 Delivery O2 Flow Rate FiO2 08/17/17 16:00 98.1 87 18 152/97 (115) 95 08/17/17 15:56 16 08/17/17 15:07 18 08/17/17 12:00 97.8 88 18 144/85 (104) 95 08/17/17 08:00 97.6 79 18 169/98 (121) 95 08/17/17 04:56 98.4 84 18 152/92 (112) 96 08/17/17 00:42 98.0 69 18 181/101 (127) 97 08/16/17 20:00 97.8 75 18 162/88 (112) 97 I/O 08/16/17 08/16/17 08/16/17 08/17/17 08/17/17 08/17/17 06:59 14:59 22:59 06:59 14:59 22:59 Intake Total 1000 ml 760 ml 480 ml Balance 1000 ml 760 ml 480 ml Intake Oral 1000 ml 760 ml 480 ml # Voids 1 4 4 3 # Bowel Movements 1 1 1 Result Diagram: 08/15/17 0443 08/15/17442 Objective Remarks General: No acute distress. Heart: Regular rate and rhythm. No murmur. Lungs: Clear to auscultation bilaterally. No wheezes, rales, or rhonchi. Breathing is nonlabored. Abdomen: Soft, nontender, nondistended. Extremities: There is edema of the right lower extremity. Right knee wound with sutures in place. Erythema seems to be improving but still present. Psych: Alert and oriented. Neuro: Normal speech. No focal deficits noted. Procedures 08/12/17 right knee joint aspiration performed in the ER 08/14/17 irrigation and debridement, right knee A/P Problem List: (1) Septic arthritis of knee, right ICD Code: M00.9 - Pyogenic arthritis, unspecified Plan: Orthopedic surgery consulted. ID consulted. The patient status post irrigation debridement. Continue IV Rocephin as per ID recommendations. The patient will need to go home on IV Rocephin. We will place the patient on ibuprofen 600 mg every 8 hours to help on swelling. Continue pain control with [place] and IV Dilaudid for breakthrough pain. (2) Hypokalemia ICD Code: E87.6 - Hypokalemia Status: Resolved Plan: That is post replacement. Continue to monitor BMP and replace as needed. (3) Cellulitis of right knee ICD Code: L03.115 - Cellulitis of right lower limb Plan: IV antibiotics as per ID recommendations. (4) HTN (hypertension) ICD Code: I10 - Essential (primary) hypertension Plan: Patient's blood pressure likely related to pain. Patient does not have history of hypertension. 6 4/2 blood pressure noted to be persistently elevated into the 70 systolic. I will start the patient amlodipine 10 mg p.o. daily. (5) Tobacco abuse ICD Code: Z72.0 - Tobacco use Status: Chronic Plan: Nicotine patch offered, however patient refused. Assessment and Plan Continue SCDs and JEANA hose for DVT prophylaxis. Discharge Planning Continue to monitor and the medical floor. Pending ID and orthopedic surgery clearance. Problem Qualifiers (1) Septic arthritis of knee, right: Qualified Codes: M00.061 - Staphylococcal arthritis, right knee Ramon Paul MD Aug 17, 2017 17:33
[2017-08-17] MEDS: MAGNESIUM HYDROXIDE SUSP 30 ML CUP PO PRN (18:13)
[2017-08-17] MEDS: IBUPROFEN 600 MG TAB PO SCH ×2 (18:14→20:12)
[2017-08-17 20:00] VITALS: BP 189/99; PULSE 76; RESP 20; TEMP 97.9; O2SAT 98
[2017-08-17] MEDS: LACTULOSE SYRUP 20 GM/30 ML CUP PO PRN (21:22)
[2017-08-18] VITALS: BP 163/97; PULSE 66; RESP 20; TEMP 97.8; O2SAT 95
[2017-08-18] MEDS: HYDROmorphone HCL PF 2 MG/ML VIAL IV PUSH PRN ×5 (01:17→21:50)
[2017-08-18] MEDS: oxyCODONE/ACETAMINOPHEN 7.5 MG/325 MG TAB PO PRN ×4 (03:05→20:50)
[2017-08-18] MEDS: IBUPROFEN 600 MG TAB PO SCH ×3 (05:32→20:50)
[2017-08-18 06:12] LABS: HEMATOCRIT 39.6 % (39.0-51.0); HEMOGLOBIN 13.5 GM/DL (13.0-17.0); MEAN CELL VOLUME 102.4 FL (80.0-100.0); MEAN CORPUSCULAR HEMOGLOBIN 34.9 PG (27.0-34.0); MEAN PLATELET VOLUME 7.4 FL (7.0-11.0); PLATELET COUNT 245 TH/MM3 (150-450); RED BLOOD COUNT 3.86 MIL/MM3 (4.50-5.90); RED CELL DISTRIBUTION WIDTH 13.4 % (11.6-17.2)
[2017-08-18 06:25] LABS: BICARBONATE 24.3 MEQ/L (21.0-32.0); CALCIUM 9.2 MG/DL (8.5-10.1); CREATININE 0.73 MG/DL (0.60-1.30); MAGNESIUM 2.1 MG/DL (1.5-2.5)
[2017-08-18 06:26] LABS: PHOSPHORUS 4.3 MG/DL (2.5-4.9)
[2017-08-18 08:00] VITALS: BP 185/96; PULSE 53; RESP 20; TEMP 97.4; O2SAT 92
[2017-08-18] MEDS: amLODIPine BESYLATE 5 MG TAB PO SCH (09:00)
[2017-08-18] MEDS: LISINOPRIL 10 MG TAB PO SCH (09:00)
[2017-08-18] MEDS: SODIUM CHLORIDE 0.9% FLUSH 10 ML FLUSH IV FLUSH SCH ×2 (09:01→20:50)
[2017-08-18] MEDS: LACTULOSE SYRUP 20 GM/30 ML CUP PO PRN (10:40)
[2017-08-18] MEDS: SODIUM CHLORIDE 0.9% FLUSH 10 ML FLUSH IV FLUSH PRN ×2 (10:43→16:55)
[2017-08-18 12:00] VITALS: BP 162/100; PULSE 75; RESP 20; TEMP 97.4; O2SAT 95
--- NOTE | 2017-08-18 13:42 | HHI.PR ---
Subjective Remarks Patient states swelling is improving. Pain is controlled. Afebrile Objective Vitals Vital Signs Date Time Temp Pulse Resp B/P (MAP) Pulse Ox O2 Delivery O2 Flow Rate FiO2 08/18/17 12:00 97.4 75 20 162/100 (120) 95 08/18/17 11:11 16 08/18/17 10:00 16 08/18/17 08:00 97.4 53 20 185/96 (125) 92 08/18/17 00:00 97.8 66 20 163/97 (119) 95 08/17/17 20:00 97.9 76 20 189/99 (129) 98 08/17/17 18:47 18 08/17/17 16:00 98.1 87 18 152/97 (115) 95 I/O 08/17/17 08/17/17 08/17/17 08/18/17 08/18/17 08/18/17 07:00 15:00 23:00 07:00 15:00 23:00 Intake Total 760 ml 480 ml 2750 ml Balance 760 ml 480 ml 2750 ml Intake Oral 760 ml 480 ml 1600 ml IV Total 1150 ml # Voids 4 3 4 # Bowel Movements 1 1 Result Diagram: 08/18/1751208/18/17 05 Objective Remarks General: No acute distress. Heart: Regular rate and rhythm. No murmur. Lungs: Clear to auscultation bilaterally. No wheezes, rales, or rhonchi. Breathing is nonlabored. Abdomen: Soft, nontender, nondistended. Extremities: There is edema of the right lower extremity. Right knee wound with sutures in place. Erythema seems to be improving but still present. Psych: Alert and oriented. Neuro: Normal speech. No focal deficits noted. Procedures 08/12/17 right knee joint aspiration performed in the ER 08/14/17 irrigation and debridement, right knee A/P Problem List: (1) Septic arthritis of knee, right ICD Code: M00.9 - Pyogenic arthritis, unspecified Plan: Orthopedic surgery consulted. ID consulted. The patient status post irrigation debridement. Continue IV Rocephin as per ID recommendations. The patient will need to go home on IV Rocephin. We will place the patient on ibuprofen 600 mg every 8 hours to help on swelling. Continue pain control with [place] and IV Dilaudid for breakthrough pain. (2) Hypokalemia ICD Code: E87.6 - Hypokalemia Status: Resolved Plan: Sp replacement. Continue to monitor BMP and replace as needed. (3) Cellulitis of right knee ICD Code: L03.115 - Cellulitis of right lower limb Plan: IV antibiotics as per ID recommendations. (4) HTN (hypertension) ICD Code: I10 - Essential (primary) hypertension Plan: Patient's blood pressure likely related to pain. Patient does not have history of hypertension. 6 4/2 blood pressure noted to be persistently elevated into the 70 systolic. I will start the patient amlodipine 10 mg p.o. daily. (5) Tobacco abuse ICD Code: Z72.0 - Tobacco use Status: Chronic Plan: Nicotine patch offered, however patient refused. Assessment and Plan Continue SCDs and JEANA hose for DVT prophylaxis. Discharge Planning Continue to monitor and the medical floor. Pending ID and orthopedic surgery clearance. Problem Qualifiers (1) Septic arthritis of knee, right: Qualified Codes: M00.061 - Staphylococcal arthritis, right knee Ramon Paul MD Aug 18, 2017 13:42
[2017-08-18 16:00] VITALS: BP 149/91; PULSE 72; RESP 20; TEMP 97.8; O2SAT 97
[2017-08-18] MEDS: cefTRIAXone INJ 2,000 MG in SODIUM CHLORIDE 0.9% INJ 100 ML IV SCH (16:55)
[2017-08-18 20:00] VITALS: BP 142/98; PULSE 80; RESP 18; TEMP 97.9; O2SAT 98
[2017-08-19] VITALS: BP 137/73; PULSE 79; RESP 18; TEMP 98; O2SAT 98
[2017-08-19] MEDS: oxyCODONE/ACETAMINOPHEN 7.5 MG/325 MG TAB PO PRN ×4 (02:56→21:32)
[2017-08-19] MEDS: HYDROmorphone HCL PF 2 MG/ML VIAL IV PUSH PRN ×4 (04:02→22:58)
[2017-08-19] MEDS: IBUPROFEN 600 MG TAB PO SCH ×3 (04:05→21:32)
[2017-08-19 08:00] VITALS: BP 157/94; PULSE 67; RESP 17; TEMP 97.5; O2SAT 98
[2017-08-19] MEDS: amLODIPine BESYLATE 5 MG TAB PO SCH (09:27)
[2017-08-19] MEDS: LISINOPRIL 10 MG TAB PO SCH (09:28)
[2017-08-19] MEDS: SODIUM CHLORIDE 0.9% FLUSH 10 ML FLUSH IV FLUSH SCH ×2 (09:29→21:31)
[2017-08-19 12:00] VITALS: BP 144/79; PULSE 87; RESP 16; TEMP 97.7; O2SAT 98
--- NOTE | 2017-08-19 15:42 | HHI.PR ---
Subjective Remarks Right knee steam drier tender and swollen. Patient is afebrile with stable vital signs. Objective Vitals Vital Signs Date Time Temp Pulse Resp B/P (MAP) Pulse Ox O2 Delivery O2 Flow Rate FiO2 08/19/17 12:00 97.7 87 16 144/79 (100) 98 08/19/17 11:05 16 08/19/17 08:00 97.5 67 17 157/94 (115) 98 08/19/17 00:00 98.0 79 18 137/73 (94) 98 08/18/17 20:00 97.9 80 18 142/98 (113) 98 08/18/17 16:00 97.8 72 20 149/91 (110) 97 I/O 08/18/17 08/18/17 08/18/17 08/19/17 08/19/17 08/19/17 07:00 15:00 23:00 07:00 15:00 23:00 Intake Total 2500 ml Balance 2500 ml Intake Oral 2400 ml IV Total 100 ml # Voids 6 2 # Bowel Movements 1 Result Diagram: 08/18/17 0508/18/17 0513 Objective Remarks General: No acute distress. Heart: Regular rate and rhythm. No murmur. Lungs: Clear to auscultation bilaterally. No wheezes, rales, or rhonchi. Breathing is nonlabored. Abdomen: Soft, nontender, nondistended. Extremities: There is edema of the right lower extremity. Right knee wound with sutures in place. Erythema seems to be improving but still present. Psych: Alert and oriented. Neuro: Normal speech. No focal deficits noted. Procedures 08/12/17 right knee joint aspiration performed in the ER 08/14/17 irrigation and debridement, right knee A/P Problem List: (1) Septic arthritis of knee, right ICD Code: M00.9 - Pyogenic arthritis, unspecified Plan: Orthopedic surgery consulted. ID consulted. The patient status post irrigation debridement. Continue IV Rocephin as per ID recommendations. The patient will need to go home on IV Rocephin. We will place the patient on ibuprofen 600 mg every 8 hours to help on swelling. Continue pain control with [place] and IV Dilaudid for breakthrough pain. (2) Hypokalemia ICD Code: E87.6 - Hypokalemia Status: Resolved Plan: Sp replacement. Continue to monitor BMP and replace as needed. (3) Cellulitis of right knee ICD Code: L03.115 - Cellulitis of right lower limb Plan: IV antibiotics as per ID recommendations. (4) HTN (hypertension) ICD Code: I10 - Essential (primary) hypertension Plan: Patient's blood pressure likely related to pain. Patient does not have history of hypertension. 6/ blood pressure noted to be persistently elevated into the 70 systolic. I will start the patient amlodipine 10 mg p.o. daily. / blood pressure stable. Continue amlodipine 10 minutes p.o. daily. (5) Tobacco abuse ICD Code: Z72.0 - Tobacco use Status: Chronic Plan: Nicotine patch offered, however patient refused. Advised smoking cessation. Assessment and Plan Continue SCDs and JEANA hose for DVT prophylaxis. Discharge Planning Continue to monitor and the medical floor. Pending ID and orthopedic surgery clearance. Problem Qualifiers (1) Septic arthritis of knee, right: Qualified Codes: M00.061 - Staphylococcal arthritis, right knee Ramon Paul MD Aug 19, 2017 15:42
[2017-08-19] MEDS ORDERED: IBUP-232 PO (15:46)
[2017-08-19] MEDS ORDERED: OXYC1TAB35 PO (15:46)
[2017-08-19] MEDS ORDERED: AMLO5 PO (15:46)
--- NOTE | 2017-08-19 15:48 | HHI.FF ---
Face to Face Verification Diagnosis: (1) Septic arthritis of knee, right (2) Cellulitis of right knee (3) HTN (hypertension) (4) Tobacco abuse (5) Hypokalemia (6) Bursitis of right knee Physical Therapy Order: Improve ambulation, Strength and gait training Home Health Nursing Order: Wound care and dressing changes Nursing assessment with vital signs IV medication administration Instructions: Daily dressing -Xeroform, 4x4 -maxine wrap I have seen patient Franky Morales on 08/19/17. My clinical findings support the need for the requested home health care services because: High risk of falls Infection w/ risk of complications I certify that my clinical findings support that this patient is homebound because: Post-op weakness Unsteady gait/balance Unsafe to leave home unassisted Unable to use public transportation Ramon Paul MD Aug 19, 2017 15:48
[2017-08-19 16:00] VITALS: BP 144/97; PULSE 78; RESP 15; TEMP 97.7; O2SAT 99
[2017-08-19] MEDS: cefTRIAXone INJ 2,000 MG in SODIUM CHLORIDE 0.9% INJ 100 ML IV SCH (17:13)
[2017-08-19] MEDS: SODIUM CHLORIDE 0.9% FLUSH 10 ML FLUSH IV FLUSH PRN (17:14)
[2017-08-19 20:00] VITALS: BP 172/100; PULSE 76; RESP 20; TEMP 97.3; O2SAT 97
[2017-08-20] VITALS: BP 155/94; PULSE 78; RESP 20; TEMP 97.4; O2SAT 97
[2017-08-20] MEDS: HYDROmorphone HCL PF 2 MG/ML VIAL IV PUSH PRN ×3 (02:38→10:29)
[2017-08-20] MEDS: oxyCODONE/ACETAMINOPHEN 7.5 MG/325 MG TAB PO PRN ×2 (03:44→09:44)
[2017-08-20] MEDS: IBUPROFEN 600 MG TAB PO SCH ×2 (06:24→13:16)
[2017-08-20 07:37] VITALS: BP 165/102; PULSE 59; RESP 16; TEMP 97.7; O2SAT 98
[2017-08-20] MEDS: amLODIPine BESYLATE 5 MG TAB PO SCH (09:04)
[2017-08-20] MEDS: SODIUM CHLORIDE 0.9% FLUSH 10 ML FLUSH IV FLUSH SCH (09:05)
[2017-08-20] MEDS: LISINOPRIL 10 MG TAB PO SCH (09:05)
[2017-08-20 12:00] VITALS: BP 138/95; PULSE 87; RESP 16; TEMP 97.8; O2SAT 97
--- NOTE | 2017-08-20 12:47 | HHI.PR ---
Addendum to Inpatient Note Addendum Reason: Additional Documentation Additional Information [facility] will follow patient for ID. [place] physician ID clinic Dr.Muhammad Bert Mcgee fax:[phone] Post hospital infusion orders in chart Will sign off please call back if any change in clinical condition or questions. I will be OOT from 08/21/2017 to 09/02/2017. Other ID MDs covering for me. Ana Paula Montes MD Aug 20, 2017 12:47
[2017-08-20] MEDS: cefTRIAXone INJ 2,000 MG in SODIUM CHLORIDE 0.9% INJ 100 ML IV SCH (14:27)
== END 2017-08-20 15:18 | disposition home or self-care (01) | DRG 486 ==
LOC: NEPE 17:39 → NEDA 21:19 → NEPFCDU 22:26 → OBSVTOIN 08-15 13:49 → N07B 08-15 18:02
PROVIDERS: ADMIT Hospitalist; ATTEND Hospitalist
PROC: 0S9C3ZX Drainage of Right Knee Joint, Percutaneous Approach, Diagnostic (ICD-10-PCS; 2017-08-12)
PROC: 0M9N0ZZ Drainage of Right Knee Bursa and Ligament, Open Approach (ICD-10-PCS; 2017-08-14)
PROC: 05HY33Z Insertion of Infusion Device into Upper Vein, Percutaneous Approach (ICD-10-PCS; 2017-08-14)
PROC: 0S9C0ZZ Drainage of Right Knee Joint, Open Approach (ICD-10-PCS; principal; 2017-08-14 06:20)
DX: M00.061 Staphylococcal arthritis, right knee (principal); L03.115 Cellulitis of right lower limb; I10 Essential (primary) hypertension; M70.41 Prepatellar bursitis, right knee; E87.6 Hypokalemia; B19.20 Unspecified viral hepatitis C without hepatic coma; F17.210 Nicotine dependence, cigarettes, uncomplicated
CPT/HCPCS: 36569; 73564; 76937; 80048; 80053; 83735; 84100; 85025; 85027; 85610; 85652; 85730; 86403; 87040; 87070; 87186; 87205; 89051; 93005; 93971; J0690; J0696; J1100; J1170; J1580; J1885; J2175; J2270; J2370; J2405; J3010; J3370; J7050; J7120

== ENCOUNTER 2017-08-26 14:04 | Emergency (ER) | payer OTHER ==
[~2017-08-26] VITALS: Ht 170.2 cm; Wt 70.0 kg
[~2017-08-26 14:04] MED LIST changes: -AZIT500T2 PO; +CEFT2INJ IV; -CEFU1TAB20 PO; +EPIN1INJ21 IV PUSH; +EPIN1INJ21 SQ; +IBUP-232 PO; +OXYC1TAB35 PO; -OXYC1TAB63 PO; +SOLU250I IV PUSH; -TRAM50TA PO; -Z.0.NO CURRENT MEDS
[2017-08-26 14:05] VITALS: BP 126/84; PULSE 98; RESP 16; TEMP 97.6; O2SAT 99
[2017-08-26 14:53] VITALS: BP 129/82; PULSE 98; RESP 16; O2SAT 95
[2017-08-26] MEDS ORDERED: cefTRIAXone INJ 2,000 MG in SODIUM CHLORIDE 0.9% INJ 100 ML IV ONE (15:45)
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
== END 2017-08-26 16:48 | disposition home or self-care (01) ==
LOC: NEPC 14:04
DX: Z46.89 Encounter for fitting and adjustment of other specified devices (principal); M00.9 Pyogenic arthritis, unspecified; I10 Essential (primary) hypertension; B19.20 Unspecified viral hepatitis C without hepatic coma; Z72.0 Tobacco use
CPT/HCPCS: 96365; 99284; J0696

== ENCOUNTER 2017-08-27 13:15 | Emergency (ER) | payer OTHER ==
[~2017-08-27] VITALS: Ht 152.4 cm; Wt 66.0 kg
[2017-08-27 13:47] VITALS: BP 117/74; PULSE 93; RESP 17; TEMP 98.6; O2SAT 96
--- NOTE | 2017-08-27 14:46 | PD ---
HPI . IV placement Chief Complaint: Patient Insurance Clerk Problem Time Seen by Provider: 14:21 Travel History International Travel<30 days: No Contact w/Intl Traveler<30days: No Traveled to known affect area: No History of Present Illness HPI This patient presents for a midline placement. He was seen yesterday after having inadvertently removed his midline. He was given a dose of his IV Rocephin. He was given a prescription to return today to outpatient to have the midline placed. He has inadvertently returned here for the midline placement. History Past Medical Histgory Hx Cancer: No Social History Alcohol Use: Yes (SOC) Tobacco Use: Yes (1PPD) Allergies-Medications (Allergen,Severity, Reaction): Coded Allergies: No Known Allergies (Verified Allergy, Unknown, 08/27/17) Reported Meds & Prescriptions Reported Meds & Active Scripts Active Oxycodon-Acetaminophen 7.5-325 (Oxycodone HCl/Acetaminophen) 7.5 Mg-325 Mg Tablet 1 Tab PO Q6H PRN Ibuprofen 600 Mg Tab 600 Mg PO Q8HR Norvasc (Amlodipine Besylate) 5 Mg Tab 10 Mg PO DAILY Epinephrine Inj 1 Mg/Ml (1 Ml) Inj 0.3 Mg SQ ONCE PRN Give with any signs of respiratory distress. Epinephrine Inj 1 Mg/Ml (1 Ml) Inj 0.3 Mg IV PUSH ONCE PRN Ceftriaxone Inj (Ceftriaxone Sodium) 2 Gram Inj 2 Gm IV Q24H 30 Days Lisinopril 10 Mg Tab 10 Mg PO DAILY Walker with Front Wheels (Device) 1 Mis Mis 1 Ea .ROUTE DIRECTED Review of Systems Except as stated in HPI: all other systems reviewed are Neg Musculoskeletal: Positive: Arthralgias Physical Exam Narrative GENERAL: Awake and alert. He is ambulating normally. SKIN: warm/dry. HEAD: Normocephalic. Atraumatic. EYES: Pupils equal and round. Extraocular movements are intact. ENT: Mucous membranes pink and moist. NECK: Supple. Full range of motion without pain.. CARDIOVASCULAR: Regular rate and rhythm. RESPIRATORY: No accessory muscle use. MUSCULOSKELETAL: No obvious deformities. Normal muscle tone. NEUROLOGICAL: Awake and alert. No obvious cranial nerve deficits. Motor grossly within normal limits. Normal speech. PSYCHIATRIC: Appropriate mood and affect; insight and judgment normal. Data Data Last Documented VS Vital Signs Date Time Temp Pulse Resp B/P (MAP) Pulse Ox O2 Delivery O2 Flow Rate FiO2 08/27/17 14:19 18 Room Air 08/27/17 13:47 98.6 93 117/74 (88) 96 MDM Medical Screen Exam Complete: Yes Emergency Medical Condition: No Narrative Course A medical screening exam was performed: At the time of evaluation the presenting medical condition was determined not to be of an emergent nature. The patient was given the option of receiving additional care, but declined. Patient was given options for additional community resources from which to obtain care. The Patient Has Been advised to seek medical attention for their presenting complaint. The patient has been advised to return to the ER at any time if an emergent condition develops. This patient has been redirected to outpatient registration. Primary Impression: Encounter for medical screening examination Condition: Stable Briana Padilla MD Aug 27, 2017 14:46
== END 2017-08-27 14:47 | disposition left against medical advice (07) ==
LOC: NEPD 13:15
DX: Z46.9 Encounter for fitting and adjustment of unspecified device (principal); F17.210 Nicotine dependence, cigarettes, uncomplicated; Z79.899 Other long term (current) drug therapy
CPT/HCPCS: 99281